=== PATIENT | male | born 1965 | race Caucasian/White ===

== ENCOUNTER 2017-06-22 18:57 | Emergency (ER) | payer BC ==
[2017-06-22] MEDS ORDERED: Ipratropium 0.5MG/2.5ML NEB* 0.5 MG/2.5 ML NEB.SOLN INH ONE (19:21)
[2017-06-22] MEDS ORDERED: Albuterol 2.5 MG/3 ML NEB.SOL* (0.083%) INH ONE (19:21)
--- NOTE | 2017-06-22 19:24 | UC ---
Respiratory Complaint HPI - HPI Summary HPI Summary: 52 yo male with productive cough x 2 weeks chills shortness of breath wheezing - History of Current Complaint Chief Complaint: UCRespiratory Stated Complaint: UR Time Seen by Provider: 06/22/17 19:10 Hx Obtained From: Patient Onset/Duration: Gradual Onset, Lasting Weeks Timing: Constant Severity Initially: Mild Severity Currently: Moderate Pain Intensity: 2 Pain Scale Used: 0-10 Numeric Character: Cough: Productive, Sputum Description: - green Associated Signs And Symptoms: Positive: Chills, Wheezing - Allergies/Home Medications Allergies/Adverse Reactions: Allergies Allergy/AdvReac Type Severity Reaction Status Date / Time No Known Allergies Allergy Verified 06/22/17 19:04 Home Medications: Home Medications Canagliflozin (NF) [Invokana (NF)] 2 tab PO DAILY 06/22/17 [History Confirmed ] Pioglitazone TAB* [Actos TAB*] 45 mg PO DAILY 06/22/17 [History Confirmed ] Valsartan [Valsartan 320 MG] 1 tab PO DAILY 06/22/17 [History Confirmed 06/22/17 ] PMH/Surg Hx/FS Hx/Imm Hx Previously Healthy: Yes Respiratory History: Asthma, Pneumonia - Surgical History Surgical History: Yes Surgery Procedure, Year, and Place: bilat shoulder surgery. fusion neck/has plates. gallbladder - Family History Known Family History: Positive: Cardiac Disease, Hypertension - Social History Alcohol Use: Rare Substance Use Type: None Smoking Status (MU): Never Smoked Tobacco Type: Smokeless Tobacco - Immunization History Most Recent Influenza Vaccination: 05/2013 Review of Systems Constitutional: Chills, Fatigue Skin: Negative Eyes: Negative ENT: Negative Respiratory: Shortness Of Breath, Cough Cardiovascular: Negative Gastrointestinal: Negative Genitourinary: Negative Motor: Negative Neurovascular: Negative Musculoskeletal: Negative Neurological: Negative Psychological: Negative Is Patient Immunocompromised?: No All Other Systems Reviewed And Are Negative: Yes Physical Exam Triage Information Reviewed: Yes Appearance: Well-Appearing, No Pain Distress, Well-Nourished Vital Signs: Initial Vital Signs Temp 97.4 F 06/22/17 19:01 Pulse 84 06/22/17 19:01 Resp 12 06/22/17 19:01 Pulse Ox 99 06/22/17 19:01 Vital Signs Reviewed: Yes Eyes: Positive: Conjunctiva Clear ENT: Positive: Hearing grossly normal, TMs normal, Uvula midline. Negative: Nasal congestion, Nasal drainage, Tonsillar swelling, Tonsillar exudate, Trismus , Muffled voice, Hoarse voice, Sinus tenderness Neck: Positive: Supple, Nontender, No Lymphadenopathy Respiratory: Positive: No respiratory distress, No accessory muscle use, Crackles - ?RLL, Wheezing Cardiovascular: Positive: RRR, No Murmur Musculoskeletal: Positive: ROM Intact, No Edema Neurological: Positive: Alert Psychological Exam: Normal Skin Exam: Normal UC Diagnostic Evaluation - Laboratory O2 Sat by Pulse Oximetry: 99 - normal /not hypoxic - Radiology Xray Interpretation: No Acute Changes Radiology Interpretation Completed By: Radiologist Re-Evaluation - Re-Evaluation First Eval Re-Evaluation Time: 19:57 Change: Improved Comment: better air movement/still wheezing with forced expiration Respiratory Course/Dx - Differential Dx/Diagnosis Provider Diagnoses: acute bronchitis with bronchospasm Discharge - Discharge Plan Condition: Stable Disposition: HOME Patient Education Materials: Acute Bronchitis (ED), Bronchospasm (ED) Referrals: Juan David Bradford MD [Primary Care Provider] - 3 Days Additional Instructions: recheck for new or worsening symptoms use MDI (puffer) 2 puffs 4x day for a week
--- NOTE | 2017-06-22 19:37 | RAD ---
HISTORY: Productive cough COMPARISONS: None VIEWS: 4: Frontal dual-energy and lateral views of the chest. FINDINGS: CARDIOMEDIASTINAL SILHOUETTE: The cardiomediastinal silhouette is normal. ROSELINE: The roseline are normal. PLEURA: The costophrenic angles are sharp. No pleural abnormalities are noted. LUNG PARENCHYMA: The lungs are clear. ABDOMEN: The upper abdomen is clear. There is no subphrenic gas. BONES AND SOFT TISSUES: No bone or soft tissue abnormalities are noted. OTHER: None. IMPRESSION: NO ACTIVE CARDIOPULMONARY DISEASE.
[2017-06-22] MEDS ORDERED: Albuterol HFA INHALER* 8 gm MDI INH ONE (19:54)
[2017-06-22] MEDS ORDERED: predniSONE TAB* 20 MG PO ONE (19:54)
[2017-06-22] MEDS ORDERED: Azithromycin TAB* 250 MG PO ONE (19:55)
== END 2017-06-22 20:20 | disposition home or self-care (01) ==
LOC: UCEAST 18:57
DX: J20.9 Acute bronchitis, unspecified (principal)
CPT/HCPCS: 71020; 99213; A9270-GY; G0463; J7512; J7644

== ENCOUNTER 2018-06-20 07:30 | Inpatient (IN) | payer BC ==
--- NOTE | 2018-06-12 20:47 | HP ---
HISTORY AND PHYSICAL: DATE OF ADMISSION/SURGERY: 06/20/18 DATE OF OFFICE VISIT: 06/10/18 SURGEON: Sandra Cramer MD * (DICTATED BY DEBBIE MATTSON) PROCEDURE: Left total knee arthroplasty. CHIEF COMPLAINT: Left knee pain. HISTORY OF PRESENT ILLNESS: Mr. Patrick is a 53-year-old gentleman with continued complaints of left knee pain. He has failed conservative treatment and elected to proceed with a left total knee arthroplasty. PAST MEDICAL HISTORY: 1. Hypertension. 2. Diabetes. 3. Migraines. PAST SURGICAL HISTORY: 1. Left knee arthroscopy x3. 2. Bilateral shoulder surgeries. 3. Cervical fusion. CURRENT MEDICATIONS: 1. Meloxicam 15 mg daily. 2. Percocet 5/325. 3. Glyburide 5 mg. 4. Topiramate 50 mg. 5. Losartan potassium 100 mg. 6. Pioglitazone 45 mg. ALLERGIES: No known drug allergies. FAMILY HISTORY: Coronary artery disease and cancer. SOCIAL HISTORY: He is a 53-year-old gentleman, lives with his spouse. He does not smoke or use drugs. Denies use of alcohol. REVIEW OF SYSTEMS: A complete 14-point review of systems was reviewed with the patient. It was positive for diabetes. He denies history of DVT, PE, hepatitis , HIV, or anesthesia problems. PHYSICAL EXAMINATION GENERAL: He is well developed, well nourished, in no acute distress. VITAL SIGNS: He stands 6 feet tall, weighs 288 pounds. His blood pressure is 140/92, heart rate is 84. HEENT: Normocephalic, atraumatic. NECK: Supple. No palpable lymph nodes. PULMONARY: The lungs are clear to auscultation bilaterally. CARDIO: Regular rate and rhythm. Strong S1, S2. ABDOMEN: Soft, nontender, nondistended. NEUROLOGICAL: He is alert and oriented x3. MUSCULOSKELETAL: Left lower extremity, the skin is intact. There are no open wounds or abrasions. He walks with an antalgic type gait favoring the left knee. He has tenderness over the medial lateral joint line with a moderate effusion. Range of motion is 10 to 125 degrees of flexion with patellofemoral crepitus. He has 2+ dorsalis pedis pulse. Intact sensation. His lower extremity muscle group strengths are intact at 5/5. ASSESSMENT AND PLAN: Mr. Patrick is a 53-year-old gentleman with end-stage osteoarthritis of the left knee. He has failed conservative treatment and elected to proceed with a left total knee arthroplasty. The surgery is scheduled for 06/20/[address] Cramer discussed the risks and benefits of the surgery at today's visit and all of his questions were answered. He will follow with Dr. Cramer 2 weeks after the surgery. DEBBIE MATTSON [id number]/[facility] #: [id number] [facility] HOSPITALClaribel
[~2018-06-20 07:30] MED LIST: Acetaminophen TAB* 325 MG PO ONE; Buffered Lidocaine 0.9% SYRIN* 5 ML/SYR SYRINGE INTRADERM ONE; Famotidine IV* 10 MG/ML 2 ML (20 mg) IV ONE; Gabapentin CAP(*) 300 MG PO ONE; Tranexamic Acid 1,000 MG in NS 0.9% 50 ML* (outpatient use) IV SCH; celeCOXIB CAP* 200 MG PO ONE
--- OUTSIDE RECORDS SUMMARY | 2018-06-20 07:56 | XMS REPORT | Continuity of Care Document ---
:1965 External Reference #:[id number] Author Name Oleg Reddy Care Team Providers Name Role Phone Juan David Bradford MD Primary Care Physician Unavailable Payers Type Date Identification Numbers Payment Provider Subscriber Policy Number: [id number] [employer] Joel Patrick PayID: [id number] [facility] [address] [place] [address] Onset: 1998 Policy Number: [employer] Joel Patrick [id number] PayID: [id number] [address] [place] [address] Onset: 2006 Policy Number: [id number] [facility] Joel Jaegerreuben LYNNE PayID: [id number] [address] [place] [address] Advance Directives Description No Information Available Problems Date Description Provider Status Onset: 02/04/2018 Localized, primary osteoarthritis Sandra Cramer M.D. 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 Oxycodone-Acetamin 02/04/ Active Tablets 5-325mg 46tabs 1-2 tabs M25.562 Sandra ophen 2018 by mouth Shoaib, every M.D. evening as needed for pain Glyburide 00/ Active Tablets 5mg [facility], 0000 MD Stevie Topiramate / Active Tablets 50mg [place], 0000 MD Juan David Losartan Potassium / Active Tablets 100mg Suzette, MD Juan David Pioglitazone HCL / Active Tablets 45mg Suzette, MD Juan David Oxycodone HCL 10/25/ Hx Tablets 5mg 150tab 1-2 po Inderjit J. 2010 - s qid prn Donal, M.D. 2017 Cyclobenzaprine 10/25/ Hx Tablets 10mg 90tabs one po Inderjit J. HCL 2010 - tid prn Donal, M.D. 2017 [place] 04/04/ Hx Tablets 10-325mg 120tab 1-2 po Inderjit JGanga 2009 - qid prn Donal, M.D. 2010 Medications Administered in Office Medication Date Status Form Strength Qnty SIG Indications Ordering Provider Depomedrol Administered Injection Sandra 40MG Chana Cramer M.D. Immunizations Description No Information Available Vital Signs Date Vital Result Comment 06/10/2018 8:54am Height 72.25 inches 6'0.25" Weight 288.00 lb Heart Rate 82 /min BP Systolic 140 mmHg BP Diastolic 92 mmHg BMI (Body Mass Index) 38.8 kg/m2 02/25/2018 3:34pm Height 72.25 inches 6'0.25" Weight 280.00 lb BP Systolic 146 mmHg BP Diastolic 92 mmHg Body Temperature 97.8 F BMI (Body Mass Index) 37.7 kg/m2 02/04/2018 3:20pm Height 72.25 inches 6'0.25" Weight 288.00 lb Heart Rate 68 /min BP Systolic 142 mmHg BP Diastolic 86 mmHg BMI (Body Mass Index) 38.8 kg/m2 Results Description No Information Available Procedures Date Code Description Status 02/04/2018 31081 Inject/Drain Joint/Bursa Major W/O US Completed Encounters Type Date Location Provider Dx Diagnosis Office Visit 02/25/2018 Orthopedic Sandra Cramer, M25.562 Pain in left knee 3:15p [facility] M25.462 Effusion, left knee M17.12 Unilateral primary osteoarthritis, left knee Office Visit 02/04/2018 3:00p [facility] Sandra Shoaib, M25.562 Pain in left Of [facility] knee M25.462 Effusion, left knee M17.12 Unilateral primary osteoarthritis, left knee M11.262 Other chondrocalcinosis, left knee Office Visit 04/05/2011 11:20a Neurosurgery Inderjit J. 723.4 [facility] DONNA Mansfield M.D. Or Radiculitis [place] NOS Office Visit 10/25/2010 1:40p Neurosurgery Inderjit J. 723.4 [facility] [place] Mansfield M.D. Or Radiculitis NOS Office Visit 09/23/2010 11:00a Neurosurgery Inderjit J. 723.4 [facility] [place] M.D. Or Radiculitis NOS Office Visit 08/01/2010 2:40p Neurosurgery Inderjit J. 723.4 [facility] [place] M.D. Or Radiculitis NOS Office Visit 06/20/2010 3:00p Neurosurgery Inderjit J. 723.4 [facility] [place] M.D. Or Radiculitis NOS Office Visit 05/03/2010 2:20p Neurosurgery Inderjit J. 723.4 [facility] [place] M.D. Or Radiculitis NOS Office Visit 04/04/2010 2:20p Neurosurgery Inderjit J. 723.4 [facility] [place] M.D. Or Radiculitis NOS Plan of Treatment Future Appointment(s):06/20/2018 9:30 am - Yaya Haskins PA-C at [facility]06/20/2018 9:30 am - DEBBIE Erickson at [facility]/20/2018 9:30 am - Sandra Cramer M.D. at [facility]06/10/2018 - Sandra Cramer M.D.M25.562 Pain in left kneeFollow up:Follow up: 2 weeks after [id number] Effusion, left kneeM17.12 Unilateral primary osteoarthritis, left knee
--- OUTSIDE RECORDS SUMMARY | 2018-06-20 07:56 | XMS REPORT | Continuity of Care Document ---
:1965 External Reference #:[id number] Author Name Samanta Alcaraz Care Team Providers Name Role Phone Juan David Bradford MD Primary Care Physician Unavailable Payers Type Date Identification Numbers Payment Provider Subscriber Policy Number: [id number] [employer] Joel Toshia Darnell LYNNE PayID: [id number] [address] [address] [place] [address] Onset: 1998 Policy Number: [employer] Joel Toshia Darnell LYNNE [id number] PayID: [id number] [place] [address] Onset: 2006 Policy Number: [id number] [facility] Joel Patrick JR PayID: [id number] [place] [address] Advance Directives Description No Information Available Problems Date Description Provider Status Onset: 02/04/2018 Localized, primary osteoarthritis Sandra Cramer M.D. 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 2010 - s qid prn Donal, .D. 2017 Cyclobenzaprine 10/25/ Hx Tablets 10mg 90tabs one po Inderjit J. HCL 2010 - tid prn Donal, M.D. 2017 [place] 04/04/ Hx Tablets 10-325mg 120tab 1-2 po Inderjit J. 2009 - qid prn Donal, .D. 2010 Medications Administered in Office Medication Date Status Form Strength Qnty SIG Indications Ordering Provider Depomedrol Administered Injection Sandra 40MG Chana Cramer M.D. Immunizations Description No Information Available Vital Signs Date Vital Result Comment 02/25/2018 3:34pm Height 72.25 inches 6'0.25" Weight [...] Available Procedures Date Code Description Status 02/04/2018 30686 Inject/Drain Joint/Bursa Major W/O US Completed Encounters Type Date Location Provider Dx Diagnosis Office Visit 02/25/2018 Orthopedic Sadnra Cramer, M25.562 Pain in left knee 3:15p [facility] M25.462 Effusion, left knee M17.12 Unilateral primary osteoarthritis, left knee Office Visit 02/04/2018 3:00p [facility] Sandra Cramer, M25.562 Pain in left Of [facility] MV[facility] knee M25.462 Effusion, left knee M17.12 Unilateral primary osteoarthritis, left knee M11.262 Other chondrocalcinosis, left knee Office Visit 04/05/2011 11:20a Neurosurgery Inderjit J. 723.4 Br[facility]ial Neuritis [facility] DONNA Mansfield M.D. Or Radiculitis [place] NOS Office Visit 10/25/2010 1:40p Neurosurgery Inderjit J. 723.4 [facility] [place] M.D. Or Radiculitis NOS Office Visit 09/23/2010 11:00a Neurosurgery Inderjit J. 723.4 [facility] Masnfield M.D. Or Radiculitis NOS Office Visit 08/01/2010 [...] NOS Office Visit 04/04/2010 2:20p Neurosurgery Inderjit JGanga 723.4 [facility] [place] M.D. Or Radiculitis NOS Plan of Treatment Future Appointment(s):06/10/2018 9:00 am - Sandra Cramer M.D. at [facility]06/20/2018 9:30 am - Sandra Cramer M.D. at [facility]02/25/2018 - Sandra Cramer M.D.M25.562 Pain in left kneeFollow up:Follow up: 7-10 days before [id number] Effusion, left kneeM17.12 Unilateral primary osteoarthritis, left knee
[2018-06-20] MEDS ORDERED: Bupivacaine 0.5% PF 10 ML VIAL INJ ONE (08:04)
[2018-06-20] MEDS ORDERED: Famotidine IV* 10 MG/ML 2 ML (20 mg) ONE (08:28)
[2018-06-20] MEDS ORDERED: ceFAZolin 2 GM PREMIX in ORs 2 GM/50 ML BAG IVPB ONE (08:28)
[2018-06-20] MEDS ORDERED: celeCOXIB CAP* 100 MG ONE (08:52)
[2018-06-20] MEDS ORDERED: Gabapentin CAP(*) 300 MG ONE (08:53)
[2018-06-20] MEDS ORDERED: Acetaminophen TAB* 325 MG ONE (08:53)
[2018-06-20] MEDS ORDERED: ROPIVACAINE 5 MG/ML 30 ML BTL (0.5%) ONE (09:35)
[2018-06-20] MEDS ORDERED: fentaNYL* 50 MCG/ML 2 ML VIAL (100 MCG VIAL) ONE ×5 (09:35→14:38)
[2018-06-20] MEDS ORDERED: Ondansetron INJ* 2 MG/ML VIAL ONE (09:35)
[2018-06-20] MEDS ORDERED: Lidocaine 2% PF * 5 ML VIAL ONE (09:35)
[2018-06-20] MEDS ORDERED: Dexamethasone IV* 4 MG/ML 1 ML (4 MG) ONE (09:35)
[2018-06-20] MEDS ORDERED: Propofol* 10 MG/ML 20 ML BTL ONE (09:35)
[2018-06-20] MEDS ORDERED: KETAMINE HCL* 50 MG/ML 10 ML VIAL ONE (09:35)
[2018-06-20] MEDS ORDERED: Midazolam* 1 MG/ML 10 ML VIAL (10 MG) ONE (09:36)
[2018-06-20] MEDS ORDERED: ceFAZolin 1 GM ADVAN(*) 1 GM ADDV.VIAL IVPB ONE (09:37)
[2018-06-20] MEDS ORDERED: Ondansetron INJ* 2 MG/ML VIAL IV PRN ×2 (13:03→13:41)
[2018-06-20] MEDS ORDERED: Naloxone* 0.4 MG/ML 1 ML VIAL IV PRN (13:03)
[2018-06-20] MEDS ORDERED: Polyethylene Glycol 3350* 17 GM PACKET PO PRN (13:41)
[2018-06-20] MEDS ORDERED: Bisacodyl SUPP* 10 MG SUPP PR PRN (13:41)
[2018-06-20] MEDS ORDERED: Magnesium Hydroxide LIQ* 30 ML UDC PO PRN (13:41)
[2018-06-20] MEDS ORDERED: oxyCODONE/Acetamin 5/325 MG* TAB PO PRN (13:41)
[2018-06-20] MEDS ORDERED: diPHENhydraMINE IV* 50 MG/ML 1 ml VIAL (BENADRYL) IV PRN (13:41)
[2018-06-20] MEDS ORDERED: traMADol TAB* 50 MG PO PRN (13:41)
[2018-06-20] MEDS ORDERED: Ondansetron TAB* 4 MG PO PRN (13:41)
[2018-06-20] MEDS: fentaNYL* 50 MCG/ML 2 ML VIAL (100 MCG VIAL) IV PRN ×3 (14:00→14:39)
[2018-06-20] MEDS ORDERED: HYDROmorphone INJ1* 1 MG/ML SYRINGE ONE ×2 (14:02→14:33)
[2018-06-20] MEDS: HYDROmorphone INJ1* 1 MG/ML SYRINGE IV PRN ×3 (14:03→14:33)
[2018-06-20] MEDS ORDERED: oxyCODONE/Acetamin 5/325 MG* TAB ONE (15:56)
[2018-06-20] MEDS ORDERED: Cyclobenzaprine TAB* 10 MG ONE (15:56)
[2018-06-20] MEDS: Cyclobenzaprine TAB* 10 MG PO PRN (15:58)
[2018-06-20] MEDS: oxyCODONE/Acetamin 5/325 MG* TAB PO PRN ×2 (15:58→22:18)
[2018-06-20] MEDS ORDERED: Morphine VIAL* 4 MG/ML VIAL (1 ml vial) ONE (16:05)
[2018-06-20] MEDS: Morphine VIAL* 4 MG/ML VIAL (1 ml vial) IV PRN ×2 (16:07→20:01)
--- NOTE | 2018-06-20 16:40 | PN ---
Progress Note - Progress Note Date of Service: 06/20/18 SOAP: Subjective: [Pt was seen in bed. He states that his knee is in extreme pain. He has had morphine, oxycodone, and flexaril and continues to have 8/10 pain. He denies any chest pain, SOB, nausea or vomiting. ] Objective: [Dressing is c/d/i, calf is soft and non tender. +df/pf, 2+ DP pulse ] Assessment: [POD 0 LTKA] Plan: [will add long acting ms contin to the pts pain medication ]
[2018-06-20] MEDS ORDERED: Warfarin TAB(*) 6 MG PO ONE (17:00)
[2018-06-20] MEDS: Acetaminophen TAB* 325 MG PO SCH (17:40)
[2018-06-20] MEDS: Morphine TAB Extended Release (*) 15 MG TAB.ER PO SCH (17:46)
--- NOTE | 2018-06-20 18:55 | CONS ---
[facility] MEDICINE CONSULTATION REPORT: DATE OF CONSULT: 06/20/18 PROVIDER: Holly Montes NP ATTENDING PHYSICIAN: Dr. Cramer CONSULTING PHYSICIAN: Dr. Yair Rodriguez (dictated by Holly Montes NP). REASON FOR CONSULT: Co-management of chronic medical conditions, hypertension, and diabetes. HISTORY OF PRESENT ILLNESS: Mr. Patrick is a 53-year-old male with a past medical history significant for hypertension, diabetes, and migraines, who presented to [facility] for an elective left total knee arthroplasty with Dr. Cramer. Please see dictated H and P from DEBBIE Kee, for complete details. In brief, the patient had ongoing pain and failed conservative measures; therefore , opted for an elective left total knee arthroplasty with Dr. Cramer. In the immediate postoperative period, the patient does complain of throbbing to the left knee. Other than his current pain, the patient has been in his normal state of health with no complaints. He denies any fever, chills, unintended weight loss. Denies any cough or congestion. Denies any chest pain or edema. Denies any hemoptysis or shortness of breath. Denies any nausea, vomiting, diarrhea, or abdominal pain. Denies any hematuria or dysuria. Denies any focal weakness or sensory loss. Denies any visual complaints. Denies any dysphagia. Does complain of joint aches on the left knee prior to surgery. Denies any rashes, lesions, or open sores. Denies any depression or psychosis. Due to his history of diabetes and hypertension, we were asked to help co- manage his care during his hospitalization. PAST MEDICAL HISTORY: 1. Hypertension. 2. Diabetes. 3. Migraines. PAST SURGICAL HISTORY: 1. Left TKA. 2. Bilateral shoulder surgery. 3. Cervical fusion. 4. Cholecystectomy. 5. Hernia repair. HOME MEDICATIONS: Include: 1. Meloxicam 15 mg p.o. b.i.d. 2. Percocet 1 to 2 tabs as needed for pain. 3. Glyburide 2 tabs p.o. b.i.d. 4. Topiramate 50 mg p.o. b.i.d. 5. Actos 45 mg p.o. q.a.m. 6. Losartan 100 mg p.o. q.a.m. ALLERGIES: No known drug allergies. FAMILY HISTORY: Father with a history of AR in his 70s. Father with a history of kidney cancer, prostate cancer, and skin cancer. No reported history of diabetes. SOCIAL HISTORY: Denies any tobacco. Reports rare alcohol use. Denies any illicit drug use. He lives with his significant other. Surrogate decision maker in the event he is unable to make his own decision is his significant other Breana or Cameron. Cameron's phone number is [phone], Breana's is [phone]. He is a full code. REVIEW OF SYSTEMS: General: There is no fever, chills, or unintended weight loss. Cardiac: Denies any chest pain or shortness of breath. Denies any edema. Respiratory: Denies any cough, congestion, hemoptysis, or shortness of breath. GI: Denies any nausea, vomiting, or diarrhea. Denies any abdominal pain. : Denies any dysuria, urinary frequency, or hematuria. Neurologic: Denies any focal weakness or sensory loss. Eyes: Denies any visual complaints. ENT: Denies any dysphagia. Denies any arthralgias other than in his left knee. Denies any rashes, lesions, psychosis, or anxiety. A review of 14 systems was completed, all others are negative. PHYSICAL EXAM: Vital Signs: Blood pressure is 152/75, temperature is 97.2, heart rate is 70, respirations 16, O2 saturation 97%. General: Mr. Patrick is sitting in the hospital room in his bed. He appears to be in mild distress due to the left knee throbbing pain. Neurologic: He is awake, alert, and oriented x3. He is able to move all extremities. Pedal pulses are +2 bilaterally. HEENT: Head is atraumatic, normocephalic. Eyes: EOMs are intact. Sclerae anicteric and not pale. Oral mucosa appears to be moist. Neck is supple. Lungs are clear to auscultation bilaterally. No wheezes, rales, or rhonchi. Cardiac: S1, S2. Regular rate and rhythm. Abdomen is soft and nontender. Bowel sounds are present x4. DIAGNOSTIC STUDIES/LAB DATA: On 06/10/18, WBCs were 9.0, RBCs 4.89, hemoglobin 15, hematocrit was 46, platelet count was 241. INR was 0.96. On 06/10/18, sodium was 139, potassium 4.1, chloride 111, carbon dioxide 23, anion gap was 5 , BUN was 16, creatinine 0.84. Urine was within normal limits with a pH of 5, and specific gravity 1.016. Postop knee x-ray: Status post total left knee replacement radiologist' s impression. IMPRESSION AND PLAN: Mr. Darnell Hope is a 53-year-old male with past medical history significant for hypertension, diabetes, and migraines, who presented for elective left total knee arthroplasty with Dr. Cramer. In the immediate postoperative period, he has no complaints. Our recommendations are as follows: 1. Status post left total knee arthroplasty. Management per Orthopedics. PT/ OT per Orthopedics. Bowel regimen per Orthopedics. DVT prophylaxis per Orthopedics. 2. Hypertension. I would recommend continuing his losartan as previously prescribed. 3. Diabetes. I would recommend holding Actos and glyburide and place him on Accu- Cheks a.c. with sliding scale coverage. 4. History of migraines. I would continue on his topiramate 50 mg p.o. b.i.d. 5. DVT prophylaxis: Per Orthopedics. 6. FEN: He can have heart-healthy diet. Caffeine is okay. 7. Code status: He is a full code. TIME SPENT: Time spent on this consultation was 45 minutes, greater than half that time was spent with the patient obtaining my history and physical, reviewing events leading thus far to his hospitalization, performing my physical exam, and reviewing my plan of care. I have discussed this with my attending, Dr. Yair Rodriguez, and he is in agreement with my plan. HOLLY MONTES, PRESS TENDER [id number]/[facility] #: [id number] [place]
[2018-06-20] MEDS: ceFAZolin 1 GM ADVAN(*) 1 GM in NS 0.9% 50 ML* 50 ML IVPB SCH (19:38)
[2018-06-20] MEDS: oxyCODONE TAB* 5 MG TAB PO PRN (20:08)
[2018-06-20] MEDS ORDERED: glyBURIDE TAB* 5 MG PO SCH (21:00)
[2018-06-20] MEDS: Topiramate TAB(*) 25 MG PO SCH (21:27)
[2018-06-20] MEDS: Magnesium Hydroxide LIQ* 30 ML UDC PO SCH (21:27)
[2018-06-20] MEDS: Docusate CAP* 100 MG PO SCH (21:27)
[2018-06-20] MEDS ORDERED: Dextrose 50% Syringe 50 ML* 25 GM/50 ML SYRINGE IV PUSH PRN (23:56)
[2018-06-21] MEDS: Cyclobenzaprine TAB* 10 MG PO PRN ×4 (00:16→20:48)
[2018-06-21] MEDS: oxyCODONE TAB* 5 MG TAB PO PRN ×6 (00:16→22:58)
[2018-06-21] MEDS: Morphine VIAL* 4 MG/ML VIAL (1 ml vial) IV PRN ×4 (00:46→22:25)
[2018-06-21] MEDS: Acetaminophen TAB* 325 MG PO SCH ×3 (01:42→16:59)
[2018-06-21] MEDS: Morphine TAB Extended Release (*) 15 MG TAB.ER PO SCH ×3 (01:56→16:50)
--- NOTE | 2018-06-21 02:08 | OP ---
DATE OF OPERATION: 06/20/18 - ROOM #342 DATE OF : 61 ATTENDING SURGEON: Sandra Cramer MD. SUPPORT SERVICES REP: DEBBIE Kee. Ms. Siegel did help throughout the procedure with preparation of the leg, wound retraction, manipulation of the knee, and wound closure. ANESTHESIOLOGIST: Dr. Armando. ANESTHESIA: General. PRE-OP DIAGNOSIS: Severe endstage degenerative osteoarthritis of the left knee joint. POST-OP DIAGNOSIS: Severe endstage degenerative osteoarthritis of the left knee joint. OPERATIVE PROCEDURE: Left total knee arthroplasty. TOURNIQUET TIME: 52 minutes. ESTIMATED BLOOD LOSS: 300 mL. COMPLICATIONS: None. SPECIMEN: Bone and cartilage from the left knee joint sent to Pathology. HARDWARE USED: This is cemented total knee arthroplasty hardware from [employer]. Two packages of Simplex bone cement. For the femur, a left Oxinium size 8 posterior stabilized Legion femoral component. For the tibia, a left Stefania II size 7 tibial base plate. For the insert, a 9-mm posterior stabilized articular insert, size 7/8. For the patella, a 38-mm 3-peg all poly patella. INDICATIONS: Mr. Patrick is a 53-year-old gentleman with years of increasingly severe left knee pain. Radiographs showed advanced arthritis. He failed conservative treatment with antiinflammatories, pain medication, intraarticular injections, and physical therapy. Due to continued pain and decreased quality of life, he elected to undergo left total knee arthroplasty. Informed consent was obtained from the patient. He understood the risks of surgery included but were not limited to bleeding, infection, damage to nearby structures, continued pain, need for further surgery, intraoperative fracture, nerve palsy, hardware failure or loosening, knee stiffness, loss of motion, stroke, heart attack, blood clot, and . He wished to proceed. INTRAOPERATIVE FINDINGS: Intraoperatively, the patient was noted to have complete- thickness loss of cartilage in both the medial and patellofemoral compartments. He had extensive osteophyte formation. DESCRIPTION OF PROCEDURE: Mr. Patrick was identified in the preanesthesia unit. His left lower extremity was marked as the correct operative site. Informed consent was signed and placed in the chart. The patient was taken to the operating room and placed under general anesthesia. A Corral catheter was placed. Tourniquet was placed on the left thigh. Left lower extremity was prepped and draped in the usual sterile fashion. Preop time-out was made to correctly identify the patient, side, and site. Appropriate perioperative antibiotics were given within 1 hour of incision. Tourniquet was inflated and total tourniquet time for this procedure was 52 minutes. A midline incision was made with a 10-blade and carried down to the extensor mechanism. A new 10- blade was used to make a standard medial parapatellar arthrotomy. Patella was subluxed laterally. Electrocautery was used to subperiosteally elevate the soft tissue along the superomedial tibia. The knee was flexed up. The anterior horn of the lateral meniscus and ACL were sharply released. A drill was used to enter the distal femur. Intramedullary distal femoral cutting guide was pinned on the distal femur. Oscillating saw was used to make the distal femoral cut. Next, the external rotation guide was pinned on the distal femur. Distal femur was sized to a size 8. Size 8 multi-cutting jig was pinned on the distal femur. Oscillating saw was used to make the appropriate 4 chamfer cuts. The PCL was completely released and the tibia was subluxed anteriorly. Extramedullary tibial cutting guide was pinned on the proximal tibia. Oscillating saw was used to make the proximal tibial cut perpendicular to the mechanical axis of the tibia. The bone was carefully removed. The knee was brought out into full extension. Spacer block had good fit with the knee in full extension. Medial and lateral ligaments were well balanced. Flexion and extension gaps were well balanced. The knee was flexed up. [employer] design technology professor was placed both medially and laterally. Any remaining meniscus was carefully removed using electrocautery. Curved osteotome was used to remove any posterior osteophytes. Tibial tray and drop alexys were placed and confirmed a satisfactory tibial cut. A size 8 left femoral trial was impacted onto the distal femur and had a good fit. The box for the posterior stabilized implant was prepared using a reamer and box cut osteotome. Size 7 tibial tray trial with a 9-mm insert trial was placed and the knee was taken through a range of motion. The knee had full extension to 130 degrees of flexion. There was satisfactory patellofemoral tracking. The patella was everted and 9 mm of patellar bone and cartilage was carefully removed using an oscillating saw. Patella was sized to a size 38. Three peg holes were drilled through the size 38 guide. A 38 trial patella was placed and the knee was taken through a range of motion. There was satisfactory patellofemoral tracking. All implant trials were carefully removed. The tibia was subluxed anteriorly and sized to a size 7. Proximal tibia was prepared using a size 7 keel punch. All bony cut surfaces were copiously irrigated with sterile saline and dried. Final implants were cemented into place starting with the tibia, followed by the femur, and last the patella. A 9-mm insert trial was placed while the knee was brought out into full extension. Tourniquet was turned down at 52 minutes. The knee was copiously irrigated with sterile saline. Electrocautery was used to obtain meticulous hemostasis. Once the cement had fully cured, the insert trial was removed. Any excess cement was removed from around the capsule and hardware. The final insert chosen was a 9-mm posterior stabilized articular insert size 7/8. This was locked into position on the tibial tray. Stability of the insert was checked and rechecked and noted to be stable. The knee was once again copiously irrigated with sterile saline. The extensor mechanism was closed using interrupted #1 Vicryls. The rest of the incision was closed in a layered fashion using 0 and 2-0 Vicryls. Skin was closed using running 3-0 nylon suture. Sterile Xeroform, 4x4s, and Webril were used to cover the incision. Aman wrap and cold pack were placed over this. The patient' s anesthesia was reversed without difficulty. He was taken to the PACU in stable condition. Intended weightbearing will be weightbearing as tolerated. Intended DVT prophylaxis will be Coumadin with a Lovenox bridge. [id number]/[facility] #: [id number] [facility] CENTERClaribel
[2018-06-21] MEDS: oxyCODONE/Acetamin 5/325 MG* TAB PO PRN ×5 (02:57→20:48)
[2018-06-21] MEDS: ceFAZolin 1 GM ADVAN(*) 1 GM in NS 0.9% 50 ML* 50 ML IVPB SCH ×2 (02:58→11:35)
[2018-06-21 05:32] LABS: Hematocrit 40 % (42-52); Hemoglobin 13.5 g/dl (14.0-18.0); Mean Platelet Volume 8.5 fL (7.4-10.4); Platelet Count 192 10^3/ul (150-450)
[2018-06-21 05:39] LABS: INR 1.06 (0.77-1.02)
[2018-06-21 05:51] LABS: EGFR Non-African American 103.3 (>60)
--- NOTE | 2018-06-21 07:08 | PN ---
Progress Note - Progress Note Date of Service: 06/21/18 SOAP: Subjective: Pt. reports pain is moderate left knee. Objective: Vital Signs: Temp Pulse Resp BP Pulse Ox 97.8 F 68 16 125/67 95 06/21/18 03:46 06/21/18 03:46 06/21/18 06:20 06/21/18 03:46 06/21/18 03:46 Laboratory Results - last 24 hr 06/20/18 06/21/18 06/21/18 09:01 05:17 05:17 Hgb 13.5 L Hct 40 L Plt Count 192 MPV 8.5 INR (Anticoag Therapy) 1.06 H Sodium Potassium Chloride Carbon Dioxide Anion Gap BUN Creatinine Est GFR ( Amer) Est GFR (Non-Af Amer) BUN/Creatinine Ratio Glucose POC Glucose (mg/dL) 150 H Calcium 06/21/18 05:17 Hgb Hct Plt Count MPV INR (Anticoag Therapy) Sodium 137 Potassium 3.9 Chloride 111 Carbon Dioxide 19 L Anion Gap 7 BUN 14 Creatinine 0.78 Est GFR ( Amer) 125.0 Est GFR (Non-Af Amer) 103.3 BUN/Creatinine Ratio 17.9 Glucose 214 H POC Glucose (mg/dL) Calcium 8.6 LLE - dressing c/d/i. distally +df/pf, full sens lt, 2+ dp pulse. Assessment: 53 yo M pod 1 s/p LTKA Plan: wbat pt/ot dvt proph will be lovenox or eliquis x 30 days plan d/c to home today or 06/22
[2018-06-21] MEDS ORDERED: Insulin LISPRO* 1 UNITS UNIT SUBCUT SCH ×2 (07:30→11:18)
[2018-06-21] MEDS: Topiramate TAB(*) 25 MG PO SCH ×2 (08:27→20:47)
[2018-06-21] MEDS: Docusate CAP* 100 MG PO SCH ×2 (08:27→20:48)
[2018-06-21] MEDS: Magnesium Hydroxide LIQ* 30 ML UDC PO SCH ×2 (08:28→20:49)
[2018-06-21] MEDS ORDERED: Pioglitazone TAB* 15 MG PO SCH (09:00)
[2018-06-21] MEDS ORDERED: Losartan TAB* 25 MG PO SCH (09:00)
--- NOTE | 2018-06-21 11:10 | PN ---
Subjective Date of Service: 06/21/18 Interval History: Pt resting in chair. Reports moderate-severe knee and lower thigh pain after participating in physical therapy. Primary team has been titrating meds to address this. Denies shortness of breath, chest pain, headache, dizziness, numbness or tingling in lower extremities. Tolerating diet without nausea/ vomiting. Objective Active Medications: Acetaminophen (Tylenol Tab*) 975 mg PO Q8H [facility] Last Admin: 06/21/18 08:17 Dose: Not Given Bisacodyl (Dulcolax Supp*) 10 mg IN DAILY PRN PRN Reason: constipation Cyclobenzaprine HCl (Flexeril Tab*) 10 mg PO TID PRN PRN Reason: SPASMS Last Admin: 06/21/18 06:20 Dose: 10 mg Dextrose (D50w Syringe 50 Ml*) 12.5 gm IV PUSH .FOR FS < 60 - SS PRN PRN Reason: FS < 60 Diphenhydramine HCl (Benadryl Iv*) 12.5 mg IV Q6H PRN PRN Reason: PRURITIS Docusate Sodium (Colace Cap*) 100 mg PO BID [facility] Last Admin: 06/21/18 08:27 Dose: 100 mg Enoxaparin Sodium (Lovenox(*)) 40 mg SUBCUT Q24H [facility] Cefazolin Sodium 1 gm/ Sodium (Chloride) 50 mls @ 200 mls/hr IVPB Q8H [facility] Stop: 06/21/18 11:44 Last Admin: 06/21/18 02:58 Dose: 200 mls/hr Lactated Ringer's (Lactated Ringers 1000 Ml Bag*) 1,000 mls @ 100 mls/hr IV PER RATE [facility] Last Admin: 06/21/18 01:56 Dose: 100 mls/hr Influenza Virus Vaccine (Fluarix *Quad* 2018-19*) 0.5 ml IM .ONCE ONE Stop: 06/22/18 09:01 Insulin Human Lispro (Humalog*) 0 units SUBCUT [facility]; Protocol Last Admin: 06/21/18 08:32 Dose: 2 unit Lactulose (Lactulose*) 30 ml PO Q6H PRN PRN Reason: constipation Losartan Potassium (Cozaar Tab*) 100 mg PO QAM [facility] Last Admin: 06/21/18 08:27 Dose: Not Given Magnesium Hydroxide (Milk Of Magnesia Liq*) 30 ml PO BID [facility] Last Admin: 06/21/18 08:28 Dose: 30 ml Magnesium Hydroxide (Milk Of Magnesia Liq*) 30 ml PO Q6H PRN PRN Reason: constipation Morphine Sulfate (Morphine Vial*) 2 mg IV Q2H PRN PRN Reason: PAIN Last Admin: 06/21/18 08:28 Dose: 2 mg Morphine Sulfate (Ms Contin(*)) 15 mg PO Q8H [facility] Last Admin: 06/21/18 08:27 Dose: 15 mg Ondansetron HCl (Zofran Inj*) 4 mg IV Q6H PRN PRN Reason: nausea Ondansetron HCl (Zofran Tab*) 4 mg PO Q6H PRN PRN Reason: NAUSEA Oxycodone HCl (Roxycodone Tab*) 10 mg PO Q4H PRN PRN Reason: SEVERE PAIN Last Admin: 06/21/18 10:27 Dose: 10 mg Oxycodone/Acetaminophen (Percocet 5/325 Tab*) 1 tab PO Q4H PRN PRN Reason: PAIN Oxycodone/Acetaminophen (Percocet 5/325 Tab*) 2 tab PO Q4H PRN PRN Reason: PAIN Last Admin: 06/21/18 08:37 Dose: 2 tab Polyethylene Glycol/Electrolytes (Miralax*) 17 gm PO DAILY PRN PRN Reason: Constipation Topiramate (Topamax(*)) 50 mg PO BID [facility] Last Admin: 06/21/18 08:27 Dose: 50 mg Tramadol HCl (Ultram*) 50 mg PO Q6H PRN PRN Reason: PAIN Last Admin: 06/21/18 02:57 Dose: 50 mg Vital Signs - 8 hr 06/21/18 06/21/18 06/21/18 03:46 04:43 04:57 Temperature 97.8 F Pulse Rate 68 Respiratory 16 16 16 Rate Blood Pressure 125/67 (mmHg) O2 Sat by Pulse 95 Oximetry 06/21/18 06/21/18 06/21/18 05:11 05:12 06:20 Temperature Pulse Rate Respiratory 16 16 16 Rate Blood Pressure (mmHg) O2 Sat by Pulse Oximetry 06/21/18 06/21/18 06/21/18 07:00 07:52 08:27 Temperature 97.7 F Pulse Rate 74 Respiratory 16 16 16 Rate Blood Pressure 102/50 (mmHg) O2 Sat by Pulse 98 Oximetry 06/21/18 06/21/18 06/21/18 08:28 08:37 09:30 Temperature Pulse Rate Respiratory 16 16 16 Rate Blood Pressure (mmHg) O2 Sat by Pulse Oximetry 06/21/18 10:27 Temperature Pulse Rate Respiratory 16 Rate Blood Pressure (mmHg) O2 Sat by Pulse Oximetry Oxygen Devices in Use Now: None Eyes: No Scleral Icterus, PERRLA Ears/Nose/Mouth/Throat: NL Teeth, Lips, Gums Neck: NL Appearance and Movements; NL JVP, Trachea Midline Respiratory: Symmetrical Chest Expansion and Respiratory Effort, Clear to Auscultation Cardiovascular: NL Sounds; No Murmurs; No JVD, RRR, No Edema Abdominal: NL Sounds; No Tenderness; No Distention Extremities: No Edema Skin: No Rash or Ulcers Neurological: Alert and Oriented x 3, NL Sensation, NL Muscle Strength and Tone , - - Able to dorsiflex and plantarflex. 2+ DP and PT pulses. Nutrition: Taking PO's Result Diagrams: 06/21/18 05:17 06/21/18 05:17 Assess/Plan/Problems-Billing Assessment: 53 year old male with PMH DM and HTN s/p elective left total knee arthroplasty with Dr Cramer yesterday - Patient Problems (1) Status post total left knee replacement Current Visit: Yes Status: Acute Code(s): Z96.652 - PRESENCE OF LEFT ARTIFICIAL KNEE JOINT SNOMED Code(s): 3439403120685 Comment: - Pt endorsing knee pain today. Primary team has been addressing. Continue pain control and bowel regimen per Ortho. - Trend H/H. Anticoagulation per ortho. - Continue PT (2) HTN (hypertension) Current Visit: Yes Status: Acute Code(s): I10 - ESSENTIAL (PRIMARY) HYPERTENSION SNOMED Code(s): 97341917 Comment: - Soft BPs this morning to 102/50. Losartan held. I suspect this is secondary to surgical volume loss and pain medications. Continue IVF hydration. I will continue to hold losartan for now and can re-address tomorrow. (3) Diabetes Current Visit: Yes Status: Acute Code(s): E11.9 - TYPE 2 DIABETES MELLITUS WITHOUT COMPLICATIONS SNOMED Code(s): 51403734 Comment: - On oral agents at home. Continue fingersticks and sliding scale lispro. (4) Hx of migraine headaches Current Visit: Yes Status: Acute Code(s): Z86.69 - PERSONAL HISTORY OF DIS OF THE NERVOUS SYS AND SENSE ORGANS SNOMED Code(s): 221809157 Comment: - No headache present on exam today - Continue topiramate (5) DVT prophylaxis Current Visit: Yes Status: Acute Code(s): BGE3423 - SNOMED Code(s): 159600001 Comment: - Continue lovenox bridge to [facility] as per primary team (6) Full code status Current Visit: Yes Status: Acute Code(s): Z78.9 - OTHER SPECIFIED HEALTH STATUS SNOMED Code(s): 716045456 Status and Disposition: Dispo per primary team
[2018-06-21] MEDS: Enoxaparin(*) 40 MG/0.4 ML SYR SUBCUT SCH (11:36)
[2018-06-21] MEDS: Insulin LISPRO* 1 UNITS UNIT SUBCUT SCH ×2 (12:39→18:06)
[2018-06-22] MEDS: oxyCODONE/Acetamin 5/325 MG* TAB PO PRN ×3 (00:53→11:42)
[2018-06-22] MEDS: Morphine TAB Extended Release (*) 15 MG TAB.ER PO SCH ×2 (00:53→08:40)
[2018-06-22] MEDS: Acetaminophen TAB* 325 MG PO SCH ×2 (01:28→09:00)
[2018-06-22] MEDS: oxyCODONE TAB* 5 MG TAB PO PRN ×3 (03:00→14:44)
[2018-06-22] MEDS: Cyclobenzaprine TAB* 10 MG PO PRN ×2 (04:55→15:01)
[2018-06-22 05:59] LABS: Hematocrit 41 % (42-52); Hemoglobin 13.9 g/dl (14.0-18.0); Mean Platelet Volume 8.3 fL (7.4-10.4); Platelet Count 209 10^3/ul (150-450)
[2018-06-22 06:16] LABS: INR 1.22 (0.77-1.02)
[2018-06-22] MEDS: Insulin LISPRO* 1 UNITS UNIT SUBCUT SCH ×2 (08:40→12:52)
[2018-06-22] MEDS: Docusate CAP* 100 MG PO SCH (08:40)
[2018-06-22] MEDS: Topiramate TAB(*) 25 MG PO SCH (08:40)
[2018-06-22] MEDS: Magnesium Hydroxide LIQ* 30 ML UDC PO SCH (08:46)
[2018-06-22] MEDS: Enoxaparin(*) 40 MG/0.4 ML SYR SUBCUT SCH (11:43)
--- NOTE | 2018-06-22 12:42 | PN ---
Progress Note - Progress Note Date of Service: 06/22/18 SOAP: Subjective: POD #2 Left TKA, doing well. Pain controlled with meds. Denies CP/SOB, f/c, n/v or calf pain Objective: Vitals: Temp Pulse Resp BP Pulse Ox 98.3 F 80 20 155/79 97 06/22/18 07:50 06/22/18 07:50 06/22/18 11:42 06/22/18 07:50 06/22/18 07:50 Gen: A&Ox3, NAD at rest sitting in chair LLE: Incision C/D/I, mild edema, no erythema or ecchymosis. +f/e at ankle and MTPs, N/V intact. Calf soft, NT Labs: Laboratory Results - last 24 hr 06/21/18 06/22/18 06/22/18 16:53 05:31 05:31 Hgb 13.9 L Hct 41 L Plt Count 209 MPV 8.3 INR (Anticoag Therapy) 1.22 H POC Glucose (mg/dL) 202 H 06/22/18 07:22 Hgb Hct Plt Count MPV INR (Anticoag Therapy) POC Glucose (mg/dL) 170 H Assessment: POD #2 Left TKA Plan: D/C home today Eliquis for DVT ppx Home PT and VNS
[2018-06-22 14:39] VITALS: BP 157/76
--- NOTE | 2018-06-23 12:17 | DS ---
DISCHARGE SUMMARY: DATE OF ADMISSION: 06/20/18 DATE OF DISCHARGE: 06/22/18 PROVIDER: Dr. Sandra Cramer.* (DICTATED BY DEBBIE PADRON) ADMITTING DIAGNOSIS: Severe end-stage osteoarthritis of the left knee. DISCHARGE DIAGNOSIS: Severe end-stage osteoarthritis of the left knee, status post left total knee arthroplasty. SECONDARY DIAGNOSES: 1. Hypertension. 2. Diabetes. 3. Migraines. HISTORY OF PRESENT ILLNESS: Mr. Patrick is a 53-year-old gentleman who has had continued complaints of ongoing left knee pain. He failed conservative management and elected to proceed with a left total knee arthroplasty. HOSPITAL COURSE: On 06/20/18, the patient was admitted to [facility] and underwent a successful left total knee arthroplasty by Dr. Cramer. He recovered briefly in the postanesthesia care unit and was transferred to the short-stay surgical unit in stable condition. The patient's pain was controlled with oral and IV pain medication. On postop day 1, he reported moderate pain in the left knee. He was alternating Percocet with oxycodone and long-acting morphine sulfate was also added, which did help with his pain. He had an H and H of 13.5 and 40. He was given Lovenox for DVT prophylaxis. On postop day 2, the patient states that his pain medication regimen was helping with the pain. He did complain of some pain in the thigh, more than in the knee itself. He was advised to try some hot packs for muscle spasm and Flexeril was also added, which did help. He was then found stable for discharge home. H and H was stable at 13.9 and 41. Throughout his hospital course, the patient remained normotensive and afebrile. DISCHARGE CONDITION: Stable. DISCHARGE DISPOSITION: Home. DISCHARGE MEDICATIONS: The patient will use: 1. Percocet 5/325 one to two tabs p.o. q.4 to 6 hours p.r.n. pain. 2. Oxycodone 5 mg 1 tab p.o. q.4 to 6 hours p.r.n. pain to alternate with the Percocet. 3. MS Contin 15 mg p.o. b.i.d. 4. Flexeril 10 mg p.o. t.i.d. p.r.n. spasm. 5. Colace 100 mg p.o. b.i.d. p.r.n. constipation. 6. Eliquis 2.5 mg p.o. b.i.d. for 30 days for DVT prophylaxis. He will resume his home medications of: 1. Diabeta 2 tabs p.o. b.i.d. 2. Topamax 50 mg p.o. b.i.d. 3. Actos 45 mg p.o. daily. 4. Cozaar 100 mg p.o. q.a.m. 5. Mobic 15 mg p.o. b.i.d. DISCHARGE INSTRUCTIONS: The patient is weightbearing as tolerated with the use of a rolling walker. He will have visiting nurse service for wound checks and home physical therapy. He will wash the wound with soap and water and apply dry dressing as needed. He is understanding not to submerge the incision in a bathtub, hot tub, or swimming pool. He will call the office with any problems or concerns. He will go directly to the emergency room with any chest pain, shortness of breath, fever greater than 101.5, calf pain or swelling. DEBBIE PADRON [id number]/[facility] #: [id number] [facility]ibel
== END 2018-06-22 16:30 | disposition home health service (06) | DRG 302 ==
LOC: AA 07:53 → SSU 13:41
PROVIDERS: ADMIT Orthopaedic Surgery Adult Reconstructive Orthopaedic Surgery; ATTEND Orthopaedic Surgery Adult Reconstructive Orthopaedic Surgery
PROC: 0SRD069 Replacement of Left Knee Joint with Oxidized Zirconium on Polyethylene Synthetic Substitute, Cemented, Open Approach (ICD-10-PCS; principal; 2018-06-20 11:00)
DX: M17.12 Unilateral primary osteoarthritis, left knee (principal); M25.762 Osteophyte, left knee; I10 Essential (primary) hypertension; E11.9 Type 2 diabetes mellitus without complications; G43.909 Migraine, unspecified, not intractable, without status migrainosus; Z79.84 Long term (current) use of oral hypoglycemic drugs; Z79.899 Other long term (current) drug therapy; Z82.49 Family history of ischemic heart disease and other diseases of the circulatory system; Z80.51 Family history of malignant neoplasm of kidney; Z80.42 Family history of malignant neoplasm of prostate; Z80.8 Family history of malignant neoplasm of other organs or systems
CPT/HCPCS: 36415; 80048; 85014; 85018; 85049; 85610; 90686; A9270-GY; G8987-GO-CI; G8988-GO-CI; G8989-GO-CI; J0690; J1100; J1170; J1650; J2250; J2270; J2405; J2704; J2795; J3010